=== PATIENT | female | born 1955 | race Caucasian/White ===

== ENCOUNTER 2021-02-21 12:54 | Outpatient (REF) | payer OTHER, SELFPAY ==
--- NOTE | ~2021-02-21 | MM_ITS ---
EXAMINATION: MM DIAGNOSTIC DIGITAL BREAST TOMOSYNTHESIS, BILATERAL CLINICAL INFORMATION: Due for yearly exam. Also follow-up probable benign bilateral calcifications. No known family history breast cancer. The lifetime risk of breast cancer based on the Tyrer-Cuzick Model is 3%. COMPARISON: Mammography: 02/22/2020, 08/27/2019, 02/12/2019, 01/29/2019 (BI-RADS 0), 02/01/2017; targeted right breast ultrasound 08/10/2009 TECHNIQUE: Digital breast tomosynthesis is performed in both the craniocaudal and mediolateral oblique views along with computer-aided detection (CAD). Synthesized 2D images are generated from the tomosynthesis. Additional bilateral magnification CC and additional bilateral magnification ML x2 views are obtained. FINDINGS: The breasts are heterogeneously dense, which may obscure small masses (ACR BI-RADS breast composition Category c). There is fibrocystic parenchymal pattern with rounded areas of stable asymmetry in the central and anterior breasts. Parenchymal pattern is similar to prior studies. There is no developing density or architectural abnormality. The bilateral calcifications for follow-up are similar to prior diagnostic exams and now considered benign. The axilla and skin contours are unremarkable. Results are provided to the patient at time of visit by the technologist. MM/MM tomosynthesis diagnostic BI IMPRESSION: 1. Fibrocystic parenchymal pattern similar to prior studies. 2. Bilateral calcifications for follow-up are stable from prior diagnostic studies and now considered benign. ASSESSMENT: BI-RADS 2: Benign RECOMMENDATION: Routine annual mammography screening. This patient's information was entered into a reminder system with a target due date for their next mammogram.
== END 2021-02-21 12:55 | disposition home or self-care (01) ==
LOC: HO.MAMMO 12:54
PROVIDERS: PCP Internal Medicine; Visit Provider Internal Medicine
DX: R92.1 Mammographic calcification found on diagnostic imaging of breast (principal)
CPT/HCPCS: 77062; 77066

== ENCOUNTER 2021-05-03 08:40 | Outpatient (REF) | payer OTHER, SELFPAY ==
--- NOTE | ~2021-05-03 | MM_ITS ---
EXAMINATION: BONE DENSITOMETRY CLINICAL INDICATION: Asymptomatic menopausal state. COMPARISON: None (current study represents initial baseline exam). TECHNIQUE: Using a [employer] DXA System (software version: 13.1) manufactured by [employer], dual-energy x-ray absorptiometry was performed of the lumbar spine and left hip. The images are of good technical quality. Summary results are attached. FINDINGS: AP SPINE L1-L4: BMD 1.227 g/cm2, Z-score 2.0, T-score 0.4, normal. LEFT FEMUR, NECK: BMD 0.741 g/cm2, Z-score -0.7, T-score -2.1, osteopenia. LEFT FEMUR, TOTAL: BMD 0.832 g/cm2, Z-score -0.2, T-score -1.4, osteopenia. IDENTIFIED RISK FACTORS: Menopause. HISTORY OF FRACTURE: None listed. MEDICATIONS: Vitamin D, Forteo. MM/XR DEXA axial skeleton IMPRESSION: 1. DIAGNOSIS: Osteopenia based on the lowest T-score value of -2.1 in the femoral neck applying World Health Organization criteria. 2. 10-YEAR FRACTURE RISK PREDICTION, FRAX: Major osteoporotic fracture (clinical spine, forearm, hip or shoulder) 10.9%. Hip fracture 1.9%. 3. Treatment Recommendations: NOF guidelines recommend consideration for treatment in postmenopausal women and men age 50 and older presenting with the following: -A hip or vertebral (clinical or morphometric) fracture. -T-score less than or equal to -2.5 at the femoral neck or spine after appropriate evaluation to exclude secondary causes. -Low bone mass at the hip or spine and a 10-year fracture probability by FRAX of greater than or equal to 3% for hip fracture or greater than or equal to 20% for major osteoporotic fracture based on the [place] adapted WHO algorithm. 4. Other Recommendations: All treatment decisions require clinical judgment and consideration of individual patient factors, including patient preferences, comorbidities, previous drug use, risk factors not captured in the FRAX model (e.g. frailty, falls, vitamin D deficiency, increased bone turnover, interval significant decline in bone density) and possible under or overestimation of fracture risk by FRAX. Additional medical evaluation for secondary cause of low bone mineral density may be appropriate. FUTURE SCAN RECOMMENDATION: People with diagnosed cases of osteoporosis or at high risk for fracture should have regular bone mineral density tests. For patients eligible for Medicare, routine testing is allowed once every 2 years. The testing frequency can be increased to one year for patients who have rapidly progressing disease, those who are receiving or discontinuing medical therapy to restore bone mass, or have additional risk factors.
== END 2021-05-03 08:41 | disposition home or self-care (01) ==
LOC: HO.MAMMO 08:40
PROVIDERS: PCP Internal Medicine; Visit Provider Internal Medicine
DX: Z13.820 Encounter for screening for osteoporosis (principal); M85.80 Other specified disorders of bone density and structure, unspecified site; Z78.0 Asymptomatic menopausal state; Z79.899 Other long term (current) drug therapy
CPT/HCPCS: 77080

== ENCOUNTER → 2021-05-22 09:42 | Outpatient (BNVA) | payer OTHER, SELFPAY | PROVIDERS: PCP Internal Medicine; Visit Provider Advanced Practice Midwife ==

== ENCOUNTER 2021-11-06 07:36 | Outpatient (REF) | payer MEDICARE, SELFPAY ==
[2021-11-06 11:59] LABS: Alanine Aminotransferase 14 U/L (0-31); Anion Gap 11 (12-20); Aspartate Amino Transferase 26 U/L (5-31); Blood Urea Nitrogen 17 mg/dL (9-16); Calcium 9.7 mg/dL (8.4-10.2); Carbon Dioxide 27 mmol/L (22-29); Chloride 104 mmol/L (96-108); Cholesterol 275 mg/dL; Estimated Glomerular Filt Rate > 60; Glucose Fasting 108 mg/dL (60-99); HDL Cholesterol 74 mg/dL; LDL Cholesterol Calculated 152 mg/dl; Potassium 4.1 mmol/L (3.3-5.1); Sodium 138 mmol/L (135-145); Triglycerides 248 mg/dL
[2021-11-06 12:34] LABS: Vitamin D 25-OH Total 32.2 ng/mL (>30)
[2021-11-07 05:31] LABS: LDL Cholesterol Direct 154 mg/dL (<100)
== END 2021-11-06 07:37 | disposition home or self-care (01) ==
LOC: HO.HMGCLDS 07:36
PROVIDERS: Visit Provider Internal Medicine
DX: Z00.01 Encounter for general adult medical examination with abnormal findings (principal); E78.1 Pure hyperglyceridemia; I10 Essential (primary) hypertension; Z78.0 Asymptomatic menopausal state
CPT/HCPCS: 36415; 80048; 80061; 82306; 83721; 84450; 84460

== ENCOUNTER 2022-06-08 09:04 | Outpatient (REF) | payer MEDICARE, SELFPAY ==
--- NOTE | ~2022-06-08 | MM_ITS ---
EXAMINATION: MM SCREENING DIGITAL BREAST TOMOSYNTHESIS, BILATERAL CLINICAL INFORMATION: Screening. Asymptomatic. The lifetime risk of breast cancer based on the Tyrer-Cuzick Model is 5%. COMPARISON: Mammography: 02/21/2021, 02/22/2020, 08/27/2019 TECHNIQUE: Digital breast tomosynthesis is performed in both the craniocaudal and mediolateral oblique views along with computer-aided detection (CAD). Synthesized 2D images are generated from the tomosynthesis. FINDINGS: The breasts are heterogeneously dense, which may obscure small masses (ACR BI-RADS breast composition Category c). Parenchymal pattern is similar to prior studies and there is no developing density or interval architectural abnormality or significant mass. Again, there are numerous bilateral calcifications similar in distribution and number to prior exam. There are also some vascular calcifications. The axilla and skin contours are unremarkable. No significant changes. MM/MM tomosynthesis screening BI IMPRESSION: No mammographic evidence of malignancy. ASSESSMENT: BI-RADS 2: Benign RECOMMENDATION: Routine annual mammography screening. This patient's information was entered into a reminder system with a target due date for their next mammogram.
== END 2022-06-08 09:05 | disposition home or self-care (01) ==
LOC: HO.MAMMO 09:04
PROVIDERS: PCP Internal Medicine; Visit Provider Internal Medicine
DX: Z12.31 Encounter for screening mammogram for malignant neoplasm of breast (principal)
CPT/HCPCS: 77063; 77067

== ENCOUNTER 2023-05-03 08:14 | Outpatient (REF) | payer MEDICARE, SELFPAY ==
[2023-05-03 11:44] LABS: Alanine Aminotransferase 11 U/L (0-31); Aspartate Amino Transferase 17 U/L (5-31); Cholesterol 208 mg/dL (<200); Glucose Fasting 94 mg/dL (60-99); HDL Cholesterol 63 mg/dL (>40); LDL Cholesterol Calculated 90 mg/dL (<100); Triglycerides 275 mg/dL (<150)
[2023-05-03 12:28] LABS: Estimated Average Glucose 80 mg/dL; Hemoglobin A1c % 4.4 % (<6.0)
== END 2023-05-03 08:15 | disposition home or self-care (01) ==
LOC: HO.HMGCLDS 08:14
PROVIDERS: PCP Internal Medicine; Visit Provider Internal Medicine
DX: E78.1 Pure hyperglyceridemia (principal); R73.01 Impaired fasting glucose
CPT/HCPCS: 36415; 80061; 82947; 83036; 84450; 84460

== ENCOUNTER 2023-05-09 07:50 | Outpatient (AMB) | payer MEDICARE, SELFPAY ==
[2023-05-09 07:52] VITALS: BP 130/80; PULSE 70; O2SAT 98; BMI 22.8
--- NOTE | 2023-05-09 07:52 | MHC.PC.OV ---
Vital Signs 05/09/23 07:52 Height 5 ft 6 in Weight 141 lb BMI 22.8 BP 130/80 Blood Pressure Location Rt brachial Position Sitting Pulse 70 Pulse Source Pulse Oximeter Pulse Oximetry (%) 98 Oxygen Delivery Method Room Air Intake Visit Reasons: Annual PE Intake Note: Pt is here today for her PE Allergies No Known Allergies Allergy (Mild, Verified 05/09/23 08:28) N/A Medication List - Last Reconciled 05/09/23 by Jaycee Kumar MD cholecalciferol (vitamin D3) 50 mcg PO DAILY fenofibrate micronized 134 mg PO DAILY Tobacco use date assessed: 05/09/23 Fall risk assessment: No Falls in past year Last assessed Fall Risk: 05/09/23 Dental Screening Dental Screen Date: 05/09/23 Did you have a dental visit in the last 12 months?: Yes Did you have a dental problem in the last 6 months where you did not have access to dental care?: Yes Was dental information given to patient?: Patient has dentist HPI Annual PE HPI Details 67-year-old lady osteopenia and multiple sites, and hypertriglyceridemia, here today for her physical exam. She is due for her screening mammogram and her bone density scan, last 1 done in 2020 for her bone density which showed presence of osteopenia in left femoral neck and left femur. No history of fractures. She is up-to-date with her screening colonoscopy done [address] Roblero with negative results, but due to positive family history in her sister, she is due again for repeat screening in 2024. She has had her COVID vaccines but has not yet had the booster, up-to-date with her flu shot, Tdap and pneumococcal vaccine, has not yet had her Shingrix vaccination. Overall she has been feeling well with no complaints at present time. [facility] Medical History AVM (arteriovenous malformation) brain Cervical cancer screening Hypertriglyceridemia Impaired fasting glucose Osteopenia of multiple sites Postmenopause Surgical History H/O breast biopsy Hx of tonsillectomy Family History Sister Colon cancer Emphysema lung Mother COPD (chronic obstructive pulmonary disease) Daughter Bronchial asthma Social History Housing: House Alcohol intake: current Alcohol intake frequency: a few times a week Patient Tobacco Use Status: Never used Tobacco Tobacco use type: Cigarette e-Cigarette/Vaping Use: Never Used Second Hand Smoke Exposure: No service: No Current occupational status: retired Cognitive needs: No Hearing needs: No Vision needs: No Female Reproductive History Menstrual Date of Mammogram: 06/08/22 Date of last Bone Density Screenin05/03/21 Questionnaire PHQ-9 Over the last 2 weeks, how often have you been bothered by any of the following problems? 1. Little interest or pleasure in doing things: not at all 2. Feeling down, depressed, or hopeless: not at all 3. Trouble falling or staying asleep, or sleeping too much: several days 4. Feeling tired or having little energy: not at all 5. Poor appetite or overeating: not at all 6. Feeling bad about yourself - or that you are a failure or have let yourself or your family down: not at all 7. Trouble concentrating on things, such as reading the newspaper or watching television: not at all 8. Moving or speaking so slowly that other people could have noticed. Or the opposite - being so fidgety or restless that you have been moving around a lot more than usual: not at all 9. Thoughts that you would be better off or of hurting yourself in some way: not at all Total score: 1 Depression Screening Interpretation: Negative 52416 - PHQ-9 Billing: Yes Source: Developed by Drs. Constantin Arcos, Lata Florentino, Cesar Gutiérrez and colleagues, with an educational doug from [employer]. Thrive Questionnaire Date Thrive assessed: 05/09/23 I am a: Patient What is your living situation today?: I have a steady place to live Within the past 12 months, did the food you bought not last and you didn't have the money to get more?: Never true Within the past 12 months, did you worry whether your food would run out before you got money to buy more?: Never true Do you have trouble paying for medicines?: No Do you have trouble getting transportation to medical appointments?: No Do you have trouble paying your heating and electricity bill?: No Do you have trouble taking care of your child, family member or friend?: No Do you have trouble with day-to-day activities such as bathing, preparing meals, shopping, managing finances, etc.?: No Are you currently unemployed and looking for a job?: No Are you interested in more education?: No AUDIT C Alcohol Use Questionnaire (AUDIT-C) 1. How often do you have a drink containing alcohol?: 4 or more times a week 2. How many drinks containing alcohol do you have on a typical day when you are drinking?: 1 or 2 3. How often do you have six or more drinks on one occasion?: Never Total Score: 4 ALEXEI-7 AMB Questionnaire ALEXEI-7 Date ALEXEI - 7 assessed: 05/09/23 Feeling nervous, anxious, or on edge: 0 = Not at all Not being able to stop or control worryin = Not at all Worrying too much about different things: 0 = Not at all Trouble relaxin = Not at all Being so restless that it is hard to sit still: 0 = Not at all Becoming easily annoyed or irritable: 0 = Not at all Feeling afraid as if something awful might happen: 0 = Not at all Total ALEXEI-7 score (0-4 normal; 5-9 mild; 10-14 moderate; 15-21 severe): 0 Source: Developed by Drs. Constantin Arcos, Lata Florentino, Cesar Gutiérrez and colleagues, with an educational doug from [employer]. ALEXEI-7 Assessment Billing ALEXEI-7 Assessment Tool: ALEXEI-7 Assessment 89318 Review of Systems Const Denies body aches, Denies fatigue, Denies fever(s), Denies headache(s) and Denies weakness Eyes Details: Overdue for eye screen, history of LASIK surgery Denies change in vision, Denies eye discharge and Denies itchy eyes ENT Denies dizziness, Denies headache(s), Denies nasal congestion, Denies nasal discharge and Denies sore throat Card Denies chest pain, Denies lightheadedness, Denies palpitations and Denies dyspnea Resp Denies chest congestion, Denies cough, Denies dyspnea and Denies wheezing GI Denies abdominal pain, Denies change in bowel habits and Denies heartburn Denies urinary frequency, Denies dysuria and Denies urinary urgency Musc Reports no additional complaints Skin/Breast Denies lesions and Denies rash Neuro Denies dizziness, Denies headache(s) and Denies weakness Psych Reports as per HPI Endo Denies fatigue, Denies polydipsia, Denies polyuria and Denies palpitations Adriano/Lymph Denies easy bruising Aller/Immun Denies itchy eyes, Denies seasonal rhinorrhea and Denies wheezing Physical exam (Primary Care) Vital Signs: Last Vital Signs Pulse 70 05/09/23 07:52 BP 130/80 05/09/23 07:52 Pulse Ox 98 05/09/23 07:52 Oxygen Delivery Method Room Air 05/09/23 07:52 BMI result Body Mass Index 22.8 Tobacco/Smoking Status: Tobacco use Status Tobacco use date assessed 05/09/23 05/09/23 08:04 Patient Tobacco Use Status Never used Tobacco 05/09/23 07:55 Tobacco use type Cigarette 05/09/23 07:55 e-Cigarette/Vaping Use Never Used 05/09/23 07:55 PHQ-9: PHQ-9 Score PHQ-9: Total score 1 05/09/23 08:04 Depression Screening Interpretation: Negative Thrive Assessment: Date of Thrive Assessment Date Thrive assessed 05/09/23 05/09/23 08:04 Advance Care Planning discussion: On file, no changes Date of discussion: 05/09/23 Forms completed: MOLST Time spent: 1-15 minutes, on File Actual minutes spent: 15 Const General: cooperative, comfortable and no acute distress Nutritional Appearance: average body habitus Orientation/consciousness: patient oriented x3 Limitations: no limitations HENMT Head: Yes normocephalic General nose exam: Normal external nose present and Normal nasal mucous membranes and turbinates present Face and sinus: Yes face symmetric Mouth: moist mucous membranes Eyes General: appearance normal, both eyes and all related structures Neck Neck: Yes full ROM, Yes no lymphadenopathy and Yes supple Thyroid: Thyroid normal Chest Breast/axilla palpation: normal palpation of the breasts Resp Auscultation: clear to auscultation bilaterally Cardio Other: S1-S2 present regular rate and rhythm Bruits: no abdominal aortic bruits GI Inspection: Yes normal to inspection Palpation (GI): No Abdominal aortic bruit present, Soft to palpation, nontender, no guarding and no masses Back/Spine/Pelvis Cervical Spine: normal cervical lordosis Thoracic/Lumbar Spine: thoraco-lumbar ROM normal Skin General skin exam: no rashes or lesions noted Neuro General: patient oriented x3, gait normal, moves all extremities, Normal light touch and pain sensation and no focal motor deficits Extrem General: Yes full ROM, Yes no joint enlargement, Yes no pedal edema, Yes no calf tenderness and Yes normal gait Psych Appearance: grossly normal Mental Status: mental status grossly normal Speech and movement: Normal speech and movement present Affect: normal affect Attitude: cooperative Thought process: Normal thought process present Results Reviewed Results Reviewed: ENTERED: 05/03/[address]: ORDERED: Glu Fasting, AST, ALT, Lipid Panel Test Result Flag Reference Site FBS 94 60-99 mg/dL AST (GOT) 17 5-31 U/L ALT (GPT) 11 0-31 U/L Triglyceride 275 H <150 mg/dL Desirable Triglyceride: less than 150 mg/dL Borderline High Triglyceride 150-199 mg/dL High Triglyceride: 200-499 mg/dL Very High Triglyceride: greater than or equal to 5OO mg/dL Cholesterol 208 H <200 mg/dL Desirable Cholesterol: less than 200 mg/dL Borderline High Cholesterol: 200-239 mg/dL High Cholesterol: greater than 239 mg/dL LDL Calculated 90 <100 mg/dL Desirable LDL: less than 100 mg/dL Near Optimal/Above Optimal LDL: 110-129 mg/dL Borderline High LDL: 130-159 mg/dL High LDL: 160-189 mg/dL Very High LDL: greater than or equal to 190 mg/dL HDL 63 >40 mg/dL Desirable HDL: greater than 40 mg/dL Note: This HDL assay may give artificially low results in patients with liver disease. Assessment and Plan Assessment & Plan (1) Annual visit for general adult medical examination with abnormal findings: Code(s): Z00.01 - Encounter for general adult medical examination with abnormal findings Plan: Discuss recent fasting labs with patient which showed fasting glucose and lipids . Recommended dental visit every 6 months and regular eye exams, at least every 2 years. Take adequate calcium in diet and vitamin-D 3 at 2000 IU per cap once a day, in addition to weight-bearing exercises to help maintain good muscle tone and weight control. Instructed to do self-breast exam, and continue yearly mammogram, and bone density scan of 2 years at least, will schedule reminded to get her COVID booster and yearly flu shot, advised to get her shingles vaccination, up-to-date with pneumonia vaccines and Tdap. Due for her repeat screening colonoscopy in 2024 (2) Hypertriglyceridemia: Code(s): E78.1 - Pure hyperglyceridemia Plan: Reviewed recent fasting lipid profile with patient with normal LDL cholesterol but elevated triglycerides . Continue with fiber , in addition to adherence to low-cholesterol diet and regular exercise, at least 30 minutes 3 to 4 times a week. Advised patient to make healthy food choices, eat more fruits, vegetables, whole grains, wild caught fish and low-fat dairy. Limit amount of meat and fried or fatty food products, as well as processed foods and fast foods. Follow-up scheduled with repeat fasting lipid panel in 6 months. (3) Osteopenia of multiple sites: Code(s): M85.89 - Other specified disorders of bone density and structure, multiple sites Plan: <del>Bone</del> <del>density</del> <del>scan</del> <del>ordered.</del> <del>Continue</del> <del>vitamin-D</del> <del>3</del> <del>2000</del> <del>units</del> <del>daily</del> <del>and</del> <del>do</del> <del>regular</del> <del>weight-bearing</del> <del>exercise,</del> <del>take</del> <del>adequate</del> <del>calcium</del> <del>from</del> <del>dietary</del> <del>sources</del> (4) Impaired fasting glucose: Code(s): R73.01 - Impaired fasting glucose Plan: Your fasting blood sugars were elevated above 100 mg/dL in the past, latest fasting glucose levels within normal limits with a hemoglobin A1c at 4.4%. Impaired glucose metabolism O2 at risk for developing diabetes mellitus type 2, as well as heart attack and stroke later on. Lifestyle changes at just weight loss, healthy eating habits, and regular exercise are important, and can prevent the progression to diabetes Orders: Orders Alanine Aminotransferase 6 Months E78.1 - Pure hyperglyceridemia, M85.89 - Other specified disorders of bone density and structure, multiple sites, Z00.01 - Encounter for general adult medical examination with abnormal findings, Z78.0 - Asymptomatic menopausal state Aspartate Amino Transferase 6 Months E78.1 - Pure hyperglyceridemia, M85.89 - Other specified disorders of bone density and structure, multiple sites, Z00.01 - Encounter for general adult medical examination with abnormal findings, Z78.0 - Asymptomatic menopausal state Lipid Panel 6 Months E78.1 - Pure hyperglyceridemia, M85.89 - Other specified disorders of bone density and structure, multiple sites, Z00.01 - Encounter for general adult medical examination with abnormal findings, Z78.0 - Asymptomatic menopausal state Vitamin D 25-OH Total 6 Months E78.1 - Pure hyperglyceridemia, M85.89 - Other specified disorders of bone density and structure, multiple sites, Z00.01 - Encounter for general adult medical examination with abnormal findings, Z78.0 - Asymptomatic menopausal state XR DEXA axial skeleton Today M85.89 - Other specified disorders of bone density and structure, multiple sites, Z12.31 - Encounter for screening mammogram for malignant neoplasm of breast, Z13.820 - Encounter for screening for osteoporosis, Z78.0 - Asymptomatic menopausal state MM screening mammo BI Today M85.89 - Other specified disorders of bone density and structure, multiple sites, Z12.31 - Encounter for screening mammogram for malignant neoplasm of breast, Z13.820 - Encounter for screening for osteoporosis, Z78.0 - Asymptomatic menopausal state Medications: Refilled fenofibrate micronized 134 mg PO DAILY 90 caps 3RF Coding Level of Care Code Est Pt Prev Care >65y(52991) Diagnoses Annual visit for general adult medical examination with abnormal findings Z00.01 Hypertriglyceridemia E78.1 Osteopenia of multiple sites M85.89 Impaired fasting glucose R73.01 Additional Codes ALEXEI-7 Assessment Billing - ALEXEI-7 Assessment Tool: ALEXEI-7 Assessment 26861 ([id number]) Vital Signs *Quality* - Advance Care Planning discussion: On file, no changes ([id number]) Vital Signs *Quality* - Time spent: 1-15 minutes, on File ([id number])
== END 2023-05-09 09:59 | disposition home or self-care (01) ==
PROVIDERS: Visit Provider Internal Medicine
DX: Z00.00 Encounter for general adult medical examination without abnormal findings (principal); E78.1 Pure hyperglyceridemia; M85.89 Other specified disorders of bone density and structure, multiple sites; R73.01 Impaired fasting glucose
CPT/HCPCS: 1123F; 99397

== ENCOUNTER 2023-07-09 09:19 | Outpatient (REF) | payer MEDICARE, SELFPAY ==
--- NOTE | ~2023-07-09 | MM_ITS ---
EXAMINATION: BONE DENSITOMETRY CLINICAL INDICATION: Encounter for screening for osteoporosis. Osteopenia of multiple sites. COMPARISON: Baseline BD dated 05/03/2021. TECHNIQUE: Using a [employer] DXA System (software version: 13.1) manufactured by [employer], dual-energy x-ray absorptiometry was performed of the lumbar spine and left hip. The images are of good technical quality. Summary results are attached. FINDINGS: AP SPINE L1-L2 (excluding L3 and L4): The data of L1-L4 has been changed to exclude the L3 and L4 vertebral bodies, because degenerative sclerosis at these levels may cause overestimation of lumbar spine density. Current: BMD 1.134 g/cm2, Z-score 1.5, T-score -0.3, normal, 4.0% decrease from baseline (<5% change is not significant). Baseline: BMD 1.181 g/cm2. LEFT FEMUR, NECK: Current: BMD 0.598 g/cm2, Z-score -1.5, T-score -3.2, osteoporosis. Baseline: BMD 0.741 g/cm2. LEFT FEMUR, TOTAL: Current: BMD 0.701 g/cm2, Z-score -1.0, T-score -2.4, osteopenia, 15.7% decrease from baseline (<5% change is not significant). Baseline: BMD 0.832 g/cm2. IDENTIFIED RISK FACTORS: Menopause. HISTORY OF FRACTURE: None listed. MEDICATIONS: Vitamin D. MM/XR DEXA axial skeleton IMPRESSION: 1. DIAGNOSIS: Osteoporosis based on the lowest T-score value of -3.2 in the femoral neck applying World Health Organization criteria. 2. 10-YEAR FRACTURE RISK PREDICTION, FRAX: According to the guidelines, FRAX calculation should only be performed on patients in the osteopenia bone density category.?Therefore, FRAX was not performed on this patient.? 3. Treatment Recommendations: NOF guidelines recommend consideration for treatment in postmenopausal women and men age 50 and older presenting with the following: -A hip or vertebral (clinical or morphometric) fracture. -T-score less than or equal to -2.5 at the femoral neck or spine after appropriate evaluation to exclude secondary causes. -Low bone mass at the hip or spine and a 10-year fracture probability by FRAX of greater than or equal to 3% for hip fracture or greater than or equal to 20% for major osteoporotic fracture based on the [place] adapted WHO algorithm. 4. Other Recommendations: All treatment decisions require clinical judgment and consideration of individual patient factors, including patient preferences, comorbidities, previous drug use, risk factors not captured in the FRAX model (e.g. frailty, falls, vitamin D deficiency, increased bone turnover, interval significant decline in bone density) and possible under or overestimation of fracture risk by FRAX. Additional medical evaluation for secondary cause of low bone mineral density may be appropriate. FUTURE SCAN RECOMMENDATION: People with diagnosed cases of osteoporosis or at high risk for fracture should have regular bone mineral density tests. For patients eligible for Medicare, routine testing is allowed once every 2 years. The testing frequency can be increased to one year for patients who have rapidly progressing disease, those who are receiving or discontinuing medical therapy to restore bone mass, or have additional risk factors.
== END 2023-07-09 09:20 | disposition home or self-care (01) ==
LOC: HO.MAMMO 09:19
PROVIDERS: PCP Internal Medicine; Visit Provider Internal Medicine
DX: Z12.31 Encounter for screening mammogram for malignant neoplasm of breast (principal); Z13.820 Encounter for screening for osteoporosis; Z78.0 Asymptomatic menopausal state; M85.89 Other specified disorders of bone density and structure, multiple sites
CPT/HCPCS: 77063; 77067; 77080

== ENCOUNTER → 2023-07-09 09:45 | Outpatient (BNV) | payer MEDICARE, SELFPAY | PROVIDERS: PCP Internal Medicine; Visit Provider Radiology Diagnostic Radiology | DX: Z12.31 Encounter for screening mammogram for malignant neoplasm of breast (principal) | CPT/HCPCS: 77063; 77067 ==

== ENCOUNTER 2024-05-25 07:01 | Outpatient (REF) | payer MEDICARE, SELFPAY ==
[2024-05-25 11:12] LABS: Alanine Aminotransferase 10 U/L (0-31); Aspartate Amino Transferase 15 U/L (5-31); Cholesterol 200 mg/dL (<200); HDL Cholesterol 77 mg/dL (>40); LDL Cholesterol Calculated 113 mg/dL (<100); Triglycerides 54 mg/dL (<150); Vitamin D 25-OH Total 46.4 ng/mL (>30)
== END 2024-05-25 07:02 | disposition home or self-care (01) ==
LOC: HO.HMGCLDS 07:01
PROVIDERS: PCP Internal Medicine; Visit Provider Internal Medicine
DX: M85.89 Other specified disorders of bone density and structure, multiple sites (principal); E78.1 Pure hyperglyceridemia; Z78.0 Asymptomatic menopausal state
CPT/HCPCS: 36415; 80061; 82306; 84450; 84460

== ENCOUNTER 2024-05-26 10:00 | Outpatient (AMB) | payer MEDICARE, SELFPAY ==
--- NOTE | 2024-05-26 10:16 | A.OFFPC_ITS ---
Vital Signs 05/26/24 10:30 Height 5 ft 6 in Weight 134 lb BMI 21.6 BP 125/60 Position Sitting Pulse 53 Pulse Source Pulse Oximeter Pulse Oximetry (%) 98 Oxygen Delivery Method Room Air Intake Visit Reasons: Annual Physical Intake Note: Pt is here today for her PE: Last mammogram 07/09/23, bone density scan 07/09/23, colonoscopy 09/22/19 Allergies No Known Allergies Allergy (Mild, Verified 05/26/24 10:55) N/A Medication List - Last Reconciled 05/26/24 by Jaycee Kumar MD cholecalciferol (vitamin D3) 50 mcg PO DAILY fenofibrate micronized 134 mg PO DAILY Tobacco use date assessed: 05/26/24 Fall risk assessment: No Falls in past year Last assessed Fall Risk: 05/26/24 Dental Screening Dental Screen Date: 05/26/24 Did you have a dental visit in the last 12 months?: No Did you have a dental problem in the last 6 months where you did not have access to dental care?: No Was dental information given to patient?: Patient has dentist HPI Annual Physical HPI Details 68 year-old lady osteopenia and multiple sites, and hypertriglyceridemia, here today for her physical exam. Last mammogram 07/09/23, bone density scan 07/09/23, colonoscopy 09/22/19. Has been feeling well with no other complaints at present time. [facility] Medical History (Updated 05/26/24 @ 11:04 by Jaycee Kumar MD) Osteoporosis Osteopenia of multiple sites Impaired fasting glucose AVM (arteriovenous malformation) brain Cervical cancer screening Hypertriglyceridemia Postmenopause Surgical History Hx of tonsillectomy H/O breast biopsy Family History Sister Colon cancer Emphysema lung Mother COPD (chronic obstructive pulmonary disease) Daughter Bronchial asthma Social History Housing: House Alcohol intake: current Alcohol intake frequency: a few times a week Patient Tobacco Use Status: Never used Tobacco Tobacco use type: Cigarette e-Cigarette/Vaping Use: Never Used Second Hand Smoke Exposure: No service: No Current occupational status: retired Cognitive needs: No Hearing needs: No Vision needs: No Questionnaire PHQ-9 Over the last 2 weeks, how often have you been bothered by any of the following problems? 1. Little interest or pleasure in doing things: not at all 2. Feeling down, depressed, or hopeless: not at all 3. Trouble falling or staying asleep, or sleeping too much: not at all 4. Feeling tired or having little energy: not at all 5. Poor appetite or overeating: not at all 6. Feeling bad about yourself - or that you are a failure or have let yourself or your family down: not at all 7. Trouble concentrating on things, such as reading the newspaper or watching television: not at all 8. Moving or speaking so slowly that other people could have noticed. Or the opposite - being so fidgety or restless that you have been moving around a lot more than usual: not at all 9. Thoughts that you would be better off or of hurting yourself in some way: not at all Total score: 0 Depression Screening Interpretation: Negative Depression Screening Done: Yes 67053 - PHQ-9 Billing: Yes Source: Developed by Drs. Constantin Arcos, Lata Florentino, Cesar Gutiérrez and colleagues, with an educational doug from [employer]. Thrive Questionnaire Date Thrive assessed: 05/26/24 I am a: Patient What is your living situation today?: I have a steady place to live Within the past 12 months, did the food you bought not last and you didn't have the money to get more?: Never true Within the past 12 months, did you worry whether your food would run out before you got money to buy more?: Never true Do you have trouble paying for medicines?: No Do you have trouble getting transportation to medical appointments?: No Do you have trouble paying your heating and electricity bill?: No Do you have trouble taking care of your child, family member or friend?: No Do you have trouble with day-to-day activities such as bathing, preparing meals, shopping, managing finances, etc.?: No Are you interested in more education?: No Please select the resources that you would like help with: None Currently or been in a relationship where the following occur: No concerns reported THRIVE Score: 0 AUDIT C Alcohol Use Questionnaire (AUDIT-C) 1. How often do you have a drink containing alcohol?: 2-4 times a month 2. How many drinks containing alcohol do you have on a typical day when you are drinking?: 1 or 2 3. How often do you have six or more drinks on one occasion?: Never Total Score: 2 ALEXEI-7 AMB Questionnaire ALEXEI-7 Date ALEXEI - 7 assessed: 05/26/24 Feeling nervous, anxious, or on edge: 0 = Not at all Not being able to stop or control worryin = Not at all Worrying too much about different things: 0 = Not at all Trouble relaxin = Not at all Being so restless that it is hard to sit still: 0 = Not at all Becoming easily annoyed or irritable: 0 = Not at all Feeling afraid as if something awful might happen: 0 = Not at all Total ALEXEI-7 score (0-4 normal; 5-9 mild; 10-14 moderate; 15-21 severe): 0 Source: Developed by Drs. Constantin Arcos, Lata Florentino, Cesar Gutiérrez and colleagues, with an educational doug from [employer]. ALEXEI-7 Assessment Billing ALEXEI-7 Assessment Tool: ALEXEI-7 Assessment 58356 Review of Systems Const Denies body aches, Denies fatigue, Denies fever(s), Denies headache(s) and Denies weakness Eyes Details: Overdue for eye screen, history of LASIK surgery Denies change in vision, Denies eye discharge and Denies itchy eyes ENT Denies dizziness, Denies headache(s), Denies nasal congestion, Denies nasal discharge and Denies sore throat Card Denies chest pain, Denies lightheadedness, Denies palpitations and Denies dyspnea Resp Denies chest congestion, Denies cough, Denies dyspnea and Denies wheezing GI Denies abdominal pain, Denies change in bowel habits and Denies heartburn Denies urinary frequency, Denies dysuria and Denies urinary urgency Musc Reports no additional complaints Skin/Breast Denies lesions and Denies rash Neuro Denies dizziness, Denies headache(s) and Denies weakness Psych Reports as per HPI Endo Denies fatigue, Denies polydipsia, Denies polyuria and Denies palpitations Adriano/Lymph Denies easy bruising Aller/Immun Denies itchy eyes, Denies seasonal rhinorrhea and Denies wheezing Physical exam (Primary Care) Vital Signs: Last Vital Signs Pulse 53 05/26/24 10:30 BP 125/60 05/26/24 10:30 Pulse Ox 98 05/26/24 10:30 Oxygen Delivery Method Room Air 05/26/24 10:30 BMI result Body Mass Index 21.6 Tobacco/Smoking Status: Tobacco use Status Tobacco use date assessed 05/26/24 05/26/24 10:18 Patient Tobacco Use Status Never used Tobacco 05/26/24 10:18 Tobacco use type Cigarette 05/26/24 10:18 e-Cigarette/Vaping Use Never Used 05/26/24 10:18 PHQ-9: PHQ-9 Score PHQ-9: Total score 0 05/26/24 11:11 Depression Screening Interpretation: Negative Thrive Assessment: Date of Thrive Assessment Date Thrive assessed 05/26/24 05/26/24 10:18 Currently or been in a relationship where the following occur: No concerns reported Advance Care Planning discussion: Completed/Scanned Date of discussion: 05/26/24 Who was present: patient Forms completed: Health Care Proxy Time spent: 16-45 minutes Actual minutes spent: 16 Const General: cooperative, comfortable and no acute distress Nutritional Appearance: average body habitus Orientation/consciousness: patient oriented x3 Limitations: no limitations HENMT Head: Yes normocephalic General nose exam: Normal external nose present and Normal nasal mucous membranes and turbinates present Face and sinus: Yes face symmetric Mouth: moist mucous membranes Eyes General: appearance normal, both eyes and all related structures Neck Neck: Yes full ROM, Yes no lymphadenopathy and Yes supple Thyroid: Thyroid normal Chest Breast/axilla palpation: normal palpation of the breasts Resp Auscultation: clear to auscultation bilaterally Cardio Other: S1-S2 present regular rate and rhythm Bruits: no abdominal aortic bruits GI Inspection: Yes normal to inspection Palpation (GI): No Abdominal aortic bruit present, Soft to palpation, nontender, no guarding and no masses Back/Spine/Pelvis Cervical Spine: normal cervical lordosis Thoracic/Lumbar Spine: thoraco-lumbar ROM normal Skin General skin exam: no rashes or lesions noted Neuro General: patient oriented x3, gait normal, moves all extremities, Normal light touch and pain sensation and no focal motor deficits Extrem General: Yes full ROM, Yes no joint enlargement, Yes no pedal edema, Yes no calf tenderness and Yes normal gait Psych Appearance: grossly normal Mental Status: mental status grossly normal Speech and movement: Normal speech and movement present Affect: normal affect Attitude: cooperative Thought process: Normal thought process present Results Reviewed Results Reviewed: Name: Shaniqua Benitez Age/Sex: 68/F : 1955 Unit#: [id number] Attend Dr: Jaycee Kumar MD Re05/25/24 Status: DEP [facility] Disch: SPEC : [id number] ERICKSON: 05/25/24 STATUS: COMP REQ : [id number] RECD: 05/25/[address]: Jaycee Kumar MD COMP: 05/25/24 ENTERED: 05/25/[address]: ORDERED: AST, ALT, Lipid Panel, Vitamin D 25-OH Test Result Flag Reference AST (GOT) 15 5-31 U/L ALT (GPT) 10 0-31 U/L Triglyceride 54 <150 mg/dL Desirable Triglyceride: less than 150 mg/dL Borderline High Triglyceride 150-199 mg/dL High Triglyceride: 200-499 mg/dL Very High Triglyceride: greater than or equal to 5OO mg/dL Cholesterol 200 H <200 mg/dL Desirable Cholesterol: less than 200 mg/dL Borderline High Cholesterol: 200-239 mg/dL High Cholesterol: greater than 239 mg/dL LDL Calculated 113 H <100 mg/dL Desirable LDL: less than 100 mg/dL Near Optimal/Above Optimal LDL: 110-129 mg/dL Borderline High LDL: 130-159 mg/dL High LDL: 160-189 mg/dL Very High LDL: greater than or equal to 190 mg/dL HDL 77 >40 mg/dL Desirable HDL: greater than 40 mg/dL Note: This HDL assay may give artificially low results in patients with liver disease. Vit D 25-OH Tot 46.4 >30 ng/mL Health Based Reference Values* < 20 ng/mL Deficient 20-30 ng/mL Insufficient > 30 ng/mL Sufficient *Ilan POLANCO. N Engl J Med. 2007;357:266-280 Care must be taken in interpreting Vitamin D results from different laboratories and methodologies. Published data demonstrated that results from patients undergoing hemodialysis may show a negative bias when tested with various automated 25-OH vitamin D assays when compared to LC-MS/MS. When testing samples from patients whose predominant form of Vitamin D is Vitamin D2, such as patients receiving Vitamin D2 supplementation, results that are subtherapeutic should be confirmed with another method such as LC-MS/MS. MM/XR DEXA axial skeleton done 07/2023 IMPRESSION: 1. DIAGNOSIS: Osteoporosis based on the lowest T-score value of -3.2 in the femoral neck applying World Health Organization criteria. Assessment and Plan Assessment & Plan (1) Osteoporosis: Code(s): M81.0 - Age-related osteoporosis without current pathological fracture Plan: Discuss recent bone density scan results with the patient , and she was started on alendronate 70 mg once a week, discussed possible side effects of medication which may include increased heartburn, increased risk for esophageal ulcers, bone pain. Reinforced importance of getting regular exercise especially with weights, take adequate calcium from dietary sources and continue taking cholecalciferol 50 mcg taken once a day. Repeat another bone density scan next year (2) Annual visit for general adult medical examination with abnormal findings: Code(s): Z00.01 - Encounter for general adult medical examination with abnormal findings Plan: Reviewed recent fasting lab results with patient Recommended dental visit every 6 months and regular eye exams, at least every 2 years. Take adequate calcium in diet and vitamin-D 3 at 2000 IU per cap once a day, in addition to weight- bearing exercises to help maintain good muscle tone and weight control. Instructed to do self-breast exam, and continue with yearly mammogram. Up-to-date with her screening colonoscopy.. Reminded to get her yearly flu vaccine and COVID booster (3) Hypertriglyceridemia: Code(s): E78.1 - Pure hyperglyceridemia Plan: Latest fasting labs showed normal triglycerides with mildly elevated LDL cholesterol. Continued on fenofibrate micronized 134 mg daily (4) Advanced directives, counseling/discussion: Code(s): Z71.89 - Other specified counseling Plan: Initiated the conversation about Advanced Directives. Advanced Directives help patients prepare for current and future decisions about their medical treatment and place of care. Discussed with patient that it is a process where a patients current condition and prognosis are reviewed, their wishes for information regarding their illness are elicited, and likely medical dilemmas are presented and options discussed. Healthcare proxy form completed today. The form can be amended as needed, reviewed yearly and make changes as needed Orders: Orders MM tomosynthesis screening BI 05/26/24 Z00.01 - Encounter for general adult medical examination with abnormal findings, Z12.31 - Encounter for screening mammogram for malignant neoplasm of breast Alanine Aminotransferase 11/06/24 E78.1 - Pure hyperglyceridemia, M81.0 - Age- related osteoporosis without current pathological fracture, Z78.0 - Asymptomatic menopausal state Aspartate Amino Transferase 11/06/24 E78.1 - Pure hyperglyceridemia, M81.0 - Age-related osteoporosis without current pathological fracture, Z78.0 - Asymptomatic menopausal state Lipid Panel 11/06/24 E78.1 - Pure hyperglyceridemia, M81.0 - Age-related osteoporosis without current pathological fracture, Z78.0 - Asymptomatic menopausal state Vitamin D 25-OH Total 11/06/24 E78.1 - Pure hyperglyceridemia, M81.0 - Age- related osteoporosis without current pathological fracture, Z78.0 - Asymptomatic menopausal state Medications: New alendronate 70 mg PO QWEEK 3 months 13 tabs 4RF M81.0 - Age-related osteoporosis without current pathological fracture Coding Level of Care Code Est Pt Prev Care >65y(06211) Diagnoses Osteoporosis M81.0 Annual visit for general adult medical examination with abnormal findings Z00.01 Hypertriglyceridemia E78.1 Advanced directives, counseling/discussion Z71.89 Additional Codes ALEXEI-7 Assessment Billing - ALEXEI-7 Assessment Tool: ALEXEI-7 Assessment 89290 ([id number]) Vital Signs *Quality* - Advance Care Planning discussion: Completed/Scanned ([id number]) Vital Signs *Quality* - Time spent: 16-45 minutes ([id number])
[2024-05-26 10:30] VITALS: BP 125/60; PULSE 53; O2SAT 98; BMI 21.6
== END 2024-05-26 11:18 | disposition home or self-care (01) ==
PROVIDERS: PCP Internal Medicine; Visit Provider Internal Medicine
DX: M81.0 Age-related osteoporosis without current pathological fracture (principal); Z00.01 Encounter for general adult medical examination with abnormal findings; E78.1 Pure hyperglyceridemia; Z71.89 Other specified counseling; Z00.00 Encounter for general adult medical examination without abnormal findings

== ENCOUNTER → 2024-05-26 10:00 | Outpatient (BNVA) | payer MEDICARE, SELFPAY | PROVIDERS: PCP Internal Medicine; Visit Provider Internal Medicine | DX: Z00.01 Encounter for general adult medical examination with abnormal findings (principal); M81.0 Age-related osteoporosis without current pathological fracture; E78.1 Pure hyperglyceridemia; Z71.89 Other specified counseling | CPT/HCPCS: 96127; 99497 ==

== ENCOUNTER 2024-07-10 09:46 | Outpatient (REF) | payer MEDICARE, SELFPAY ==
--- NOTE | ~2024-07-10 | MM_ITS ---
EXAMINATION: MM SCREENING DIGITAL BREAST TOMOSYNTHESIS, BILATERAL CLINICAL INFORMATION: Screening. Asymptomatic. COMPARISON: Mammography: Comparison is made with available priors TECHNIQUE: Digital breast mammography with tomosynthesis is performed in both the craniocaudal and mediolateral oblique views along with computer-aided detection (CAD). FINDINGS: The breasts are heterogeneously dense, which may obscure small masses (ACR BI-RADS breast composition Category c). There are no significant masses, abnormal calcifications, or other abnormalities. MM/MM tomosynthesis screening BI IMPRESSION: No mammographic evidence of malignancy. ASSESSMENT: BI-RADS BI-RADS 1 - Negative RECOMMENDATION: Routine annual mammography screening. 1 year F/U This examination should not preclude the clinical evaluation of a suspicious palpable abnormality. This patient's information was entered into a reminder system with a target due date for their next mammogram. Electronically signed by: Helen Cheung DO 07/20/2024 09:23 AM EMMANUELLE
== END 2024-07-10 09:47 | disposition home or self-care (01) ==
LOC: HO.MAMMO 09:46
PROVIDERS: PCP Internal Medicine; Visit Provider Internal Medicine
DX: Z12.31 Encounter for screening mammogram for malignant neoplasm of breast (principal)
CPT/HCPCS: 77063; 77067

== ENCOUNTER → 2024-07-10 10:00 | Outpatient (BNV) | payer MEDICARE, SELFPAY | PROVIDERS: PCP Internal Medicine; Visit Provider Internal Medicine | DX: Z12.31 Encounter for screening mammogram for malignant neoplasm of breast (principal) | CPT/HCPCS: 77063; 77067 ==

== ENCOUNTER 2024-11-12 07:36 | Outpatient (REF) | payer MEDICARE, SELFPAY ==
[2024-11-12 10:57] LABS: Alanine Aminotransferase 24 U/L (0-31); Aspartate Amino Transferase 25 U/L (5-31); Cholesterol 203 mg/dL (<200); HDL Cholesterol 86 mg/dL (>40); LDL Cholesterol Calculated 104 mg/dL (<100); Triglycerides 66 mg/dL (<150); Vitamin D 25-OH Total 54.2 ng/mL (>30)
== END 2024-11-12 07:37 | disposition home or self-care (01) ==
LOC: HO.HMGCLDS 07:36
PROVIDERS: PCP Internal Medicine; Visit Provider Internal Medicine
DX: M81.0 Age-related osteoporosis without current pathological fracture (principal); E78.1 Pure hyperglyceridemia; Z78.0 Asymptomatic menopausal state
CPT/HCPCS: 36415; 80061; 82306; 84450; 84460

== ENCOUNTER 2024-11-17 08:08 | Outpatient (AMB) | payer MEDICARE, SELFPAY ==
[2024-11-17 08:19] VITALS: BP 120/54; PULSE 77; RESP 16; TEMP 36.6; O2SAT 97; BMI 20.7
--- NOTE | 2024-11-17 08:19 | MHC.PC.OV ---
Vital Signs 11/17/24 08:19 Height 5 ft 6 in Weight 128 lb BMI 20.7 BP 120/54 L Blood Pressure Location Lt brachial Position Sitting Respiration 16 Pulse 77 Pulse Source Pulse Oximeter Temp 97.8 F Temp Source Oral Pulse Oximetry (%) 97 Oxygen Delivery Method Room Air Intake Visit Reasons: 6m follow up, lipids, fasting labs Intake Note: Pt is here today for her 6mo. f/u lipids Allergies No Known Allergies Allergy (Mild, Verified 11/17/24 08:43) N/A Medication List - Last Reconciled 11/17/24 by Jaycee Kumar MD alendronate 70 mg PO QWEEK 3 months cholecalciferol (vitamin D3) 50 mcg PO DAILY fenofibrate micronized 134 mg PO DAILY Tobacco use date assessed: 11/17/24 Fall risk assessment: No Falls in past year Last assessed Fall Risk: 11/17/24 Dental Screening Dental Screen Date: 05/26/24 Did you have a dental visit in the last 12 months?: No Did you have a dental problem in the last 6 months where you did not have access to dental care?: No Was dental information given to patient?: No HPI 6m follow up, lipids, fasting labs HPI Details 61-year-old lady with history of osteoporosis pain in left femoral neck and osteopenia in left femur, currently on alendronate has been on it now for the last 3 months, with no adverse effects noted. She also has history hypertriglyceridemia currently on fenofibrate, at 134 mg daily. Latest fasting labs showed lipids and vitamin-D level are within normal limits . She has been compliant with her diet, and walks regularly and does weight lifting with light weights. No history of fracture. Up-to-date with all her vaccines. She has family history for colon cancer, sister diagnosed with colon cancer at age 45 and now has a recurrence of the cancer. He had a colonoscopy done by Dr. Roblero in 2019 and is due for repeat colonoscopy this year due to positive family history [facility] Medical History Encounter for monitoring alendronate therapy Family history of colon cancer Osteoporosis Impaired fasting glucose AVM (arteriovenous malformation) brain Cervical cancer screening Hypertriglyceridemia Postmenopause Surgical History Hx of tonsillectomy H/O breast biopsy Family History Sister Colon cancer Emphysema lung Mother COPD (chronic obstructive pulmonary disease) Daughter Bronchial asthma Social History Housing: House Alcohol intake: current Alcohol intake frequency: a few times a week Patient Tobacco Use Status: Never used Tobacco Tobacco use type: Cigarette e-Cigarette/Vaping Use: Never Used Second Hand Smoke Exposure: No service: No Current occupational status: retired Cognitive needs: No Hearing needs: No Vision needs: No Questionnaire PHQ-9 Over the last 2 weeks, how often have you been bothered by any of the following problems? 1. Little interest or pleasure in doing things: not at all 2. Feeling down, depressed, or hopeless: not at all 3. Trouble falling or staying asleep, or sleeping too much: not at all 4. Feeling tired or having little energy: not at all 5. Poor appetite or overeating: not at all 6. Feeling bad about yourself - or that you are a failure or have let yourself or your family down: not at all 7. Trouble concentrating on things, such as reading the newspaper or watching television: not at all 8. Moving or speaking so slowly that other people could have noticed. Or the opposite - being so fidgety or restless that you have been moving around a lot more than usual: not at all 9. Thoughts that you would be better off or of hurting yourself in some way: not at all Total score: 0 Depression Screening Interpretation: Negative Depression Screening Done: Yes 30209 - PHQ-9 Billing: Yes Source: Developed by Drs. Constantin Arcos, Lata Florentino, Cesar Gutiérrez and colleagues, with an educational doug from [employer]. Thrive Questionnaire Date Thrive assessed: 11/17/24 I am a: Patient What is your living situation today?: I have a steady place to live Within the past 12 months, did the food you bought not last and you didn't have the money to get more?: Never true Within the past 12 months, did you worry whether your food would run out before you got money to buy more?: Never true Do you have trouble paying for medicines?: No Do you have trouble getting transportation to medical appointments?: No Do you have trouble paying your heating and electricity bill?: No Do you have trouble taking care of your child, family member or friend?: No Do you have trouble with day-to-day activities such as bathing, preparing meals, shopping, managing finances, etc.?: No Are you currently unemployed and looking for a job?: No Are you interested in more education?: No Please select the resources that you would like help with: None Currently or been in a relationship where the following occur: No concerns reported THRIVE Score: 0 AUDIT C Alcohol Use Questionnaire (AUDIT-C) 1. How often do you have a drink containing alcohol?: 2-3 times a week 2. How many drinks containing alcohol do you have on a typical day when you are drinking?: 1 or 2 3. How often do you have six or more drinks on one occasion?: Never Total Score: 3 ALEXEI-7 AMB Questionnaire ALEXEI-7 Date ALEXEI - 7 assessed: 11/17/24 Feeling nervous, anxious, or on edge: 0 = Not at all Not being able to stop or control worryin = Not at all Worrying too much about different things: 0 = Not at all Trouble relaxin = Several days Being so restless that it is hard to sit still: 0 = Not at all Becoming easily annoyed or irritable: 0 = Not at all Feeling afraid as if something awful might happen: 0 = Not at all Total ALEXEI-7 score (0-4 normal; 5-9 mild; 10-14 moderate; 15-21 severe): 1 Source: Developed by Drs. Constantin Arcos, Lata Florentino, Cesar Gutiérrez and colleagues, with an educational doug from [employer]. ALEXEI-7 Assessment Billing ALEXEI-7 Assessment Tool: ALEXEI-7 Assessment 19958 Review of Systems Const Denies body aches, Denies fatigue, Denies fever(s) and Denies weakness Eyes Details: Overdue for eye screen, history of LASIK surgery Denies change in vision, Denies eye discharge and Denies itchy eyes ENT Reports no additional complaints Card Denies chest pain, Denies lightheadedness, Denies palpitations and Denies dyspnea Resp Denies chest congestion, Denies cough, Denies dyspnea and Denies wheezing GI Denies abdominal pain, Denies change in bowel habits and Denies heartburn Denies urinary frequency, Denies dysuria and Denies urinary urgency Musc Reports no additional complaints Skin/Breast Denies lesions and Denies rash Neuro Denies weakness Psych Reports no additional complaints Endo Denies fatigue, Denies polydipsia, Denies polyuria and Denies palpitations Adriano/Lymph Denies easy bruising Aller/Immun Denies itchy eyes, Denies seasonal rhinorrhea and Denies wheezing Physical exam (Primary Care) Vital Signs: Last Vital Signs Temp 97.8 F 11/17/24 08:19 Pulse 77 11/17/24 08:19 Resp 16 11/17/24 08:19 BP 120/54 L 11/17/24 08:19 Pulse Ox 97 11/17/24 08:19 Oxygen Delivery Method Room Air 11/17/24 08:19 BMI result Body Mass Index 20.7 Tobacco/Smoking Status: Tobacco use Status Tobacco use date assessed 11/17/24 11/17/24 08:26 Patient Tobacco Use Status Never used Tobacco 11/17/24 08:19 Tobacco use type Cigarette 11/17/24 08:19 e-Cigarette/Vaping Use Never Used 11/17/24 08:19 PHQ-9: PHQ-9 Score PHQ-9: Total score 0 11/17/24 08:19 Depression Screening Interpretation: Negative Thrive Assessment: Date of Thrive Assessment Date Thrive assessed 11/17/24 11/17/24 08:26 Currently or been in a relationship where the following occur: No concerns reported Const General: cooperative, comfortable and no acute distress Nutritional Appearance: average body habitus Orientation/consciousness: patient oriented x3 HENMT Head: Yes normocephalic General nose exam: Normal external nose present Face and sinus: Yes face symmetric Mouth: moist mucous membranes Eyes General: appearance normal, both eyes and all related structures Neck Neck: Yes full ROM, Yes no lymphadenopathy and Yes supple Thyroid: Thyroid normal Resp Auscultation: clear to auscultation bilaterally Cardio Other: S1-S2 present regular rate and rhythm GI Palpation (GI): Soft to palpation, nontender, no guarding and no masses Back/Spine/Pelvis Cervical Spine: normal cervical lordosis Thoracic/Lumbar Spine: thoraco-lumbar ROM normal Skin General skin exam: no rashes or lesions noted Neuro General: patient oriented x3, gait normal, moves all extremities, Normal light touch and pain sensation and no focal motor deficits Extrem General: Yes full ROM, Yes no joint enlargement, Yes no pedal edema, Yes no calf tenderness and Yes normal gait Psych Appearance: grossly normal Mental Status: mental status grossly normal Speech and movement: Normal speech and movement present Affect: normal affect Attitude: cooperative Thought process: Normal thought process present Results Reviewed Results Reviewed: Name: Shaniqua Benitez Age/Sex: 69/F : 1955 Unit#: [id number] Attend Dr: Jaycee Kumar MD Re11/12/24 Status: DEP REF Location: [facility] Disch: SPEC : [id number] ERICKSON: 11/12/24 STATUS: COMP REQ : [id number] RECD: 11/12/[address]: Jaycee Kumar MD COMP: 11/12/24 ENTERED: 11/12/[address]: ORDERED: AST, ALT, Lipid Panel, Vitamin D 25-OH Test Result Flag Reference AST (GOT) 25 5-31 U/L ALT (GPT) 24 0-31 U/L Triglyceride 66 <150 mg/dL Desirable Triglyceride: less than 150 mg/dL Borderline High Triglyceride 150-199 mg/dL High Triglyceride: 200-499 mg/dL Very High Triglyceride: greater than or equal to 5OO mg/dL Cholesterol 203 H <200 mg/dL Desirable Cholesterol: less than 200 mg/dL Borderline High Cholesterol: 200-239 mg/dL High Cholesterol: greater than 239 mg/dL LDL Calculated 104 H <100 mg/dL Desirable LDL: less than 100 mg/dL Near Optimal/Above Optimal LDL: 110-129 mg/dL Borderline High LDL: 130-159 mg/dL High LDL: 160-189 mg/dL Very High LDL: greater than or equal to 190 mg/dL HDL 86 >40 mg/dL Desirable HDL: greater than 40 mg/dL Note: This HDL assay may give artificially low results in patients with liver disease. Vit D 25-OH Tot 54.2 >30 ng/mL Health Based Reference Values* < 20 ng/mL Deficient 20-30 ng/mL Insufficient > 30 ng/mL Sufficient Coding Level of Care Code Est Pt Level 4 (82377) Complex EM visit Add On G2211 Diagnoses Family history of colon cancer Z80.0 Age-related osteoporosis without current pathological fracture M81.0 Osteoporosis type: age-related Presence of current pathological fracture: without current pathological fracture Encounter for monitoring alendronate therapy Z51.81; Z79.83 Hypertriglyceridemia E78.1 Impaired fasting glucose R73.01 Additional Codes PHQ-9 - 33069 - PHQ-9 Billing: Yes ([id number]) ALEXEI-7 Assessment Billing - ALEXEI-7 Assessment Tool: ALEXEI-7 Assessment 39910 ([id number]) Assessment & Plan Assessment & Plan (1) Family history of colon cancer: Comment: Sister diagnosed at age 45 Code(s): Z80.0 - Family history of malignant neoplasm of digestive organs Category: Medical Plan: Referred back to Dr. Roblero for her screening colonoscopy (2) Osteoporosis: Code(s): M81.0 - Age-related osteoporosis without current pathological fracture Category: Medical Qualifiers: Osteoporosis type: age-related Presence of current pathological fracture: without current pathological fracture Qualified Code(s): M81.0 - Age-related osteoporosis without current pathological fracture Plan: Has been on alendronate now for at least 3 months, denies any side effects from taking the medication. Compliant with doing regular weight-bearing exercise and has cut vitamin-D 3 supplements as directed, with normal levels noted on recent labs done will repeat another bone density scan together with her screening mammogram later this year. (3) Encounter for monitoring alendronate therapy: Code(s): Z51.81 - Encounter for therapeutic drug level monitoring; Z79.83 - jail (current) use of bisphosphonates Category: Medical Plan: Repeat another bone density scan later this (4) Hypertriglyceridemia: Code(s): E78.1 - Pure hyperglyceridemia Category: Medical Plan: Reviewed recent fasting lipid profile with patient with levels now within normal . Continue fenofibrate 134 mg once a day , in addition to adherence to low-cholesterol diet and regular exercise, at least 30 minutes 3 to 4 times a week. Advised patient to make healthy food choices, eat more fruits, vegetables, whole grains, wild caught fish and low-fat dairy. Limit amount of meat and fried or fatty food products, as well as processed foods and fast foods. Follow-up scheduled with repeat fasting lipid panel in 08/2025 prior to her physical exam visit (5) Impaired fasting glucose: Code(s): R73.01 - Impaired fasting glucose Category: Medical Plan: Your previous fasting blood sugars were elevated above 100 mg/dL. Impaired glucose metabolism increases the risk for developing diabetes mellitus type 2, as well as heart attack and stroke later on. Lifestyle changes that promotes weight loss, healthy eating habits, and regular exercise are important, and can prevent the progression to diabetes. Fasting glucose and hemoglobin A1c added to her next lab order Orders: Orders Lipid Panel 08/08/25 E78.1 - Pure hyperglyceridemia, M81.0 - Age-related osteoporosis without current pathological fracture, R73.01 - Impaired fasting glucose, Z78.0 - Asymptomatic menopausal state Aspartate Amino Transferase 08/08/25 E78.1 - Pure hyperglyceridemia, M81.0 - Age-related osteoporosis without current pathological fracture, R73.01 - Impaired fasting glucose, Z78.0 - Asymptomatic menopausal state Alanine Aminotransferase 08/08/25 E78.1 - Pure hyperglyceridemia, M81.0 - Age-related osteoporosis without current pathological fracture, R73.01 - Impaired fasting glucose, Z78.0 - Asymptomatic menopausal state Vitamin D 25-OH Total 08/08/25 E78.1 - Pure hyperglyceridemia, M81.0 - Age-related osteoporosis without current pathological fracture, R73.01 - Impaired fasting glucose, Z78.0 - Asymptomatic menopausal state Hemoglobin A1c Today E78.1 - Pure hyperglyceridemia, M81.0 - Age-related osteoporosis without current pathological fracture, R73.01 - Impaired fasting glucose, Z78.0 - Asymptomatic menopausal state MM tomosynthesis screening BI Today M81.0 - Age-related osteoporosis without current pathological fracture, Z12.31 - Encounter for screening mammogram for malignant neoplasm of breast, Z51.81 - Encounter for therapeutic drug level monitoring, Z79.83 - jail (current) use of bisphosphonates XR DEXA axial skeleton Today M81.0 - Age-related osteoporosis without current pathological fracture, Z12.31 - Encounter for screening mammogram for malignant neoplasm of breast, Z51.81 - Encounter for therapeutic drug level monitoring, Z79.83 - intermediate designer (current) use of bisphosphonates Basic Metabolic Panel Fasting 08/08/25 E78.1 - Pure hyperglyceridemia, M81.0 - Age-related osteoporosis without current pathological fracture, R73.01 - Impaired fasting glucose, Z78.0 - Asymptomatic menopausal state Referrals Gastroenterology Referral Z80.0 - Family history of malignant neoplasm of digestive organs
== END 2024-11-17 09:52 | disposition home or self-care (01) ==
LOC: HO.HMCC 08:09
PROVIDERS: PCP Internal Medicine; Visit Provider Internal Medicine
DX: Z80.0 Family history of malignant neoplasm of digestive organs (principal); M81.0 Age-related osteoporosis without current pathological fracture; Z51.81 Encounter for therapeutic drug level monitoring; Z79.83 Long term (current) use of bisphosphonates; E78.1 Pure hyperglyceridemia; R73.01 Impaired fasting glucose

== ENCOUNTER → 2024-11-17 08:08 | Outpatient (BNVA) | payer MEDICARE, SELFPAY | PROVIDERS: PCP Internal Medicine; Visit Provider Internal Medicine | DX: M81.0 Age-related osteoporosis without current pathological fracture (principal); E78.1 Pure hyperglyceridemia; R73.01 Impaired fasting glucose; Z80.0 Family history of malignant neoplasm of digestive organs; Z79.83 Long term (current) use of bisphosphonates | CPT/HCPCS: 96127; 99212 ==

== ENCOUNTER 2025-05-03 06:21 | Day surgery (SDC) | payer MEDICARE, SELFPAY ==
--- OUTSIDE RECORDS SUMMARY | 2025-02-25 05:40 | XMS_ITS ---
Author Organization [facility] Address [address] [facility] [address] [facility] [address] [place] [phone] Care Team Providers Care Superintendent Production Name Role Phone Jaycee Kumar MD Primary Care Provider Brent Roblero Jr, Kale Tirado [phone] REASON FOR VISIT colon screening Encounters Encounter Location Date Provider Diagnosis [facility] [address] [facility] [address] [place] [phone] 02/25/2025 Kale Roblero Jr Plan Of Treatment Next Appt Details Provider Name:Kale hackett Jr, 05/03/2025 09:20:00 AM, [address] [place] [address] , [place], [place], [phone], Progress Notes * AILYN KWONG MDOB:1955 (69 yo F)Acc No.[id number]:02/25/2025 Progress Notes Patient: AILYN HOLM Provider: Krystal Roblero MD :1955 A ge:69 Y S ex:Female Date:02/25/2025 Address:[address] [place], [place] [phone] Pcp:Jaycee Kumar MD Subjective: * Chief Complaints: * 1 . Colon screening. * Medical History: Objective: * Vitals: Assessment: Plan: * Treatment: * * The named appointment provid er may or may not be the originator of this progress note, and it is not deemed complete until electronically signed by the appointment provider. Sign off status: Pending * Provider: Krystal Roblero MD Date: 0 02/25/2025 Generated for Raghavendra tolliver/José/Marquise on: 0 03/23/2025 02:55 PM EDT
[2025-04-29 15:58] VITALS: BMI 19.9
--- NOTE | 2025-05-02 12:12 | HO.ANESPROP2 ---
HPI - Anesthesia Eval Consult details Narrative: 69yo F for Colonoscopy PMFSH Active Problems Active Problems: All Active Problems Encounter for monitoring alendronate therapy (Acute) Family history of colon cancer (Acute) Osteoporosis (Acute) Impaired fasting glucose (Acute) Hypertriglyceridemia (Acute) Postmenopause (Acute) Past Medical History Medical History (Updated 04/29/25 @ 15:55 by Jennifer Espinoza, RN) HTN (hypertension) Encounter for monitoring alendronate therapy Family history of colon cancer Osteoporosis Impaired fasting glucose AVM (arteriovenous malformation) brain Cervical cancer screening Hypertriglyceridemia Postmenopause Family History Family History Sister Colon cancer Emphysema lung Mother COPD (chronic obstructive pulmonary disease) Daughter Bronchial asthma Surgical History Surgical History (Updated 04/29/25 @ 15:56 by Jennifer Espinoza, RN) Hx of arthroscopy of left knee Hx of colonoscopy (2019) Hx of tonsillectomy H/O breast biopsy Social History Social History Housing: House Alcohol intake: current Alcohol intake frequency: a few times a week Patient Tobacco Use Status: Never used Tobacco Tobacco use type: Cigarette e-Cigarette/Vaping Use: Never Used Second Hand Smoke Exposure: No service: No Current occupational status: retired Cognitive needs: No Hearing needs: No Vision needs: No Meds Allergies Allergy/AdvReac Type Severity Reaction Status Date / Time No Known Allergies Allergy Mild N/A Verified 11/17/24 08:43 Home Medications ?Medication ?Instructions ?Recorded ?Confirmed ?Last Taken ?Type cholecalciferol (vitamin D3) 50 50 mcg PO DAILY 04/26/22 04/29/25 Unknown History mcg (2,000 unit) capsule lisinopril 2.5 mg tablet 2.5 mg PO DAILY 04/29/25 04/29/25 Unknown History Exam Height,Weight and Vital Signs: Height 5 ft 6 in Weight 55.883 kg Assessment and Plan Assessment Anesthesia Assessment: Chart Reviewed
[2025-05-03 06:36] VITALS: BMI 19.3
[2025-05-03 06:48] VITALS: BP 159/76; PULSE 74; RESP 16; TEMP 36.3; O2SAT 100
[2025-05-03] MEDS: Lactated Ringers 1,000 ML 100 ML IVCONT (06:49)
--- NOTE | 2025-05-03 07:27 | MHC.SHP ---
Pre-Procedural Eval Section A - 24 Hr Update-Section A only Date of Service: 05/03/25 Section B - Complete if H&P > 30 days Chief Complaint: screening Details of Present Illness: see H&P no changes Relevant Family History (Specify if Yes): No Relevant Social History: None Present Medications: see Short Stay Collaborative assessment Medical History: No relevant PMH History of Previous Operations: No relevant previous surgery Allergies: Allergies Allergy/AdvReac Type Severity Reaction Status Date / Time No Known Allergies Allergy Mild N/A Verified 11/17/24 08:43 Review of Systems Sugical H&P ROS: Negative: Constitution, Cardiovascular, Respiratory, Neurological, Psychiatric, Hem-Onc, Allergic/Immunologic, Gastrointestinal, Genitourinary, Musculoskeletal, Integumentary, Endocrine and Eyes/Ears/Nose/Throat Exam Surgical H&P Exam: Normal: HEENT, Normal: Heart, Normal: Lungs, Normal: Extremities, Normal: Abdomen, Normal: Skin and Normal: Neurological Plan Diagnosis/Plan: Unchanged I have reviewed the history and physical and performed a pertinent physical examination on my patient. No changes have occurred unless specified. Time Spent With Patient Time: Total time managing care of this patient today ____ minutes.
--- NOTE | 2025-05-03 07:39 | HO.ANESPROP2 ---
[facility] Active Problems Active Problems: All Active Problems (Updated 04/29/25 @ 15:55 by Jennifer Espinoza RN) Encounter for monitoring alendronate therapy (Acute) Family history of colon cancer (Acute) Osteoporosis (Acute) Impaired fasting glucose (Acute) Hypertriglyceridemia (Acute) Postmenopause (Acute) Past Medical History Medical History HTN (hypertension) Encounter for monitoring alendronate therapy Family history of colon cancer Osteoporosis Impaired fasting glucose AVM (arteriovenous malformation) brain Cervical cancer screening Hypertriglyceridemia Postmenopause Functional capacity: independent ambulation Patient : No Family History Family History Sister Colon cancer Emphysema lung Mother COPD (chronic obstructive pulmonary disease) Daughter Bronchial asthma Family history of problems with anesthesia: No Surgical History Surgical History Hx of arthroscopy of left knee Hx of colonoscopy (2019) Hx of tonsillectomy H/O breast biopsy History of Problems with Anesthesia: Yes Social History Social History Housing: House Alcohol intake: current Alcohol intake frequency: a few times a week Patient Tobacco Use Status: Never used Tobacco Tobacco use type: Cigarette e-Cigarette/Vaping Use: Never Used Second Hand Smoke Exposure: No service: No Current occupational status: retired Cognitive needs: No Hearing needs: No Vision needs: No Meds Allergies Allergy/AdvReac Type Severity Reaction Status Date / Time No Known Allergies Allergy Mild N/A Verified 11/17/24 08:43 Active Medications: Current Medications Lactated Ringer's (Lr) 1,000 mls @ 100 mls/hr IVCONT .Q10H VY Last Admin: 05/03/25 06:49 Dose: 100 mls/hr Home Medications ?Medication ?Instructions ?Recorded ?Confirmed ?Last Taken ?Type cholecalciferol (vitamin D3) 50 50 mcg PO DAILY 04/26/22 04/29/25 Unknown History mcg (2,000 unit) capsule lisinopril 2.5 mg tablet 2.5 mg PO DAILY 04/29/25 05/03/25 05/02/25 08:00 History Exam Height,Weight and Vital Signs: Height 5 ft 6 in Weight 54.2 kg Last Vital Signs Temp 97.4 F 05/03/25 06:48 Pulse 74 05/03/25 06:48 Resp 16 05/03/25 06:48 BP 159/76 H 05/03/25 06:48 Pulse Ox 100 05/03/25 06:48 O2 Del Method Room Air 05/03/25 06:48 Airway Mallampati Class: II TM Dist: >3cm Neck ROM: Full Heart: RRR Lungs: CTA Assessment and Plan Assessment Anesthesia Assessment: Anesthesia Plan Discussed Final Anesthetic Review Family History of Problems with Anesthesia: No History of Problems with Anesthesia: Yes NPO: Yes ASA Class: II Final Preanesthetic Review: Meds/Liz Chart Reviewed and Consent Obtained/Reviewed Patient Risk: Intermediate Procedure Risk: Low Anesthetic Plan Anesthetic Plan: MAC:
[2025-05-03 07:59] VITALS: BP 95/41; PULSE 63; RESP 16; TEMP 36.1; O2SAT 97
[2025-05-03 08:14] VITALS: BP 115/64; PULSE 56; RESP 16; O2SAT 98
[2025-05-03 08:30] VITALS: BP 126/69; PULSE 55; RESP 16; TEMP 36.1; O2SAT 100
--- NOTE | 2025-05-03 09:24 | OP_ITS ---
DATE OF SERVICE: 05/03/2025 SURGEON: Kale Roblero MD INDICATIONS: Colon cancer screening and family history of colon cancer. PREOPERATIVE DIAGNOSIS: POSTOPERATIVE DIAGNOSIS: PROCEDURE PERFORMED: Colonoscopy to the terminal ileum. ESTIMATED BLOOD LOSS: COMPLICATIONS: ANESTHESIA: Monitored anesthesia care. ASSISTANTS: SPECIMENS: DESCRIPTION OF PROCEDURE: A history and physical performed. The risks and benefits of the procedure were explained to the patient. Informed consent was obtained. The patient was placed in the left lateral decubitus position. A digital rectal exam was performed and was found to be normal. The Olympus pediatric video colonoscope was introduced into the rectum and advanced to the cecum. The cecum was identified by transillumination, palpation, and identification of ileocecal valve. Examination was performed. The scope was removed. She tolerated the procedure well and was returned to recovery area in stable condition. FINDINGS: The terminal ileum was examined and appeared normal. The visualized colonic mucosa was normal. The quality of the prep was good. No polyps were identified. Retroflexed examination showed small to moderate-sized internal hemorrhoids. IMPRESSION: Normal colonoscopy. RECOMMENDATION: 1. Followup as needed. 2. Repeat colonoscopy is recommended in 5 years because of family history. MD TAL Talamantes/PINKY / [id number]
--- NOTE | 2025-05-03 11:22 | HO.POSTANES ---
Post Anesthesia Evaluation Post Anesthesia Evaluation Date of Service: 05/03/25 Vital Signs: Vital Signs Temp Pulse Resp BP Pulse Ox O2 Del Method 05/03/25 08:30 97 F 55 16 126/69 100 Room Air 05/03/25 08:14 56 16 115/64 98 Room Air 05/03/25 07:59 97 F 63 16 95/41 L 97 Room Air 05/03/25 06:48 97.4 F 74 16 159/76 H 100 Room Air Anesthesia: Monitored Mental Status: Awake Pain Control: Satisfactory Nausea/Vomiting: None Hydration: Adequate Anesthesia-Related Issues: No Anes. Related Issues
== END 2025-05-03 09:09 | disposition home or self-care (01) ==
PROVIDERS: PCP Internal Medicine; Visit Provider Internal Medicine Gastroenterology
PROC: 0DJD8ZZ Inspection of Lower Intestinal Tract, Via Natural or Artificial Opening Endoscopic (ICD-10-PCS; CPT 45378; principal; 2025-05-03 07:30)
DX: Z12.11 Encounter for screening for malignant neoplasm of colon (principal); Z80.0 Family history of malignant neoplasm of digestive organs; K64.8 Other hemorrhoids; I10 Essential (primary) hypertension; E78.1 Pure hyperglyceridemia; M81.0 Age-related osteoporosis without current pathological fracture; R73.01 Impaired fasting glucose; Q28.2 Arteriovenous malformation of cerebral vessels; Z79.899 Other long term (current) drug therapy; Z98.890 Other specified postprocedural states
CPT/HCPCS: G0105; J2003; J2704

== ENCOUNTER 2025-07-25 08:13 | Outpatient (REF) | payer MEDICARE, SELFPAY ==
--- NOTE | ~2025-07-25 | MM_ITS ---
EXAMINATION: MM SCREENING DIGITAL BREAST TOMOSYNTHESIS, BILATERAL CLINICAL INFORMATION: Screening. Asymptomatic. COMPARISON: Comparison made to multiple prior, most recent July 10, 2024, and most remote February 12, 2019. TECHNIQUE: Digital breast tomosynthesis is performed in mediolateral oblique and craniocaudal views along with computer-aided detection (CAD). Synthesized 2D images are generated from the tomosynthesis. FINDINGS: BREAST COMPOSITION: The breasts are heterogeneously dense, which may obscure small masses. BILATERAL BREASTS: No significant masses, suspicious calcifications or other abnormalities are seen in either breast. MM/MM tomosynthesis screening BI IMPRESSION: BILATERAL BREASTS: Negative, no mammographic evidence of malignancy. Normal interval follow-up is recommended in 12 months. ASSESSMENT: BI-RADS: Category 1: Negative RECOMMENDATION: Routine annual mammography screening. FOLLOW-UP: 1 year F/U This examination should not preclude the clinical evaluation of a suspicious palpable abnormality. This patient's information was entered into a reminder system with a target due date for their next mammogram. Electronically signed by: Rose Gomez MD 07/25/2025 08:06 PM [facility]
--- NOTE | ~2025-07-25 | MM_ITS ---
STUDY: DUAL ENERGY X-RAY ABSORPTIOMETRY / DXA REASON FOR EXAM: Female, 70 years old Z12.31 - Encounter for screening mammogram for malignant neoplasm of breast TECHNIQUE: Bone Mineral Density (BMD) measurements of the lumbar spine and left hip were obtained using [employer] COMPARISON: July 09, 2023 FINDINGS: L1-L2 BMD: 1.236 g/cm2 L1-L2 T score: 0.6. This corresponds to Normal bone density. This represents a 9.0* % increase in bone density compared with prior exam from July 09, 2023. Left femoral neck BMD: 0.779 g/cm2 Left femoral neck T score: -1.9. This corresponds to osteopenia. Left total hip BMD: 0.806 g/cm2 Left total hip T score: -1.6. This corresponds to osteopenia. This represents a 15.0* % increase in bone density compared with prior exam from July 09, 2023. * - Indicates a statistically significant change. MM/XR DEXA axial skeleton IMPRESSION: Osteopenia Reference Information: The T-score is the number of standard deviations above or below the standard which is normal for young adults at their peak bone mineral density. The World Health Organization (WHO) interprets the T-scores as follows: At or above -1 SD Normal bone density Between -1 and -2.5 SD Osteopenia At or below -2.5 SD Osteoporosis Electronically signed by: Rose Gomez MD 07/26/2025 08:59 AM [facility]
== END 2025-07-25 08:14 | disposition home or self-care (01) ==
LOC: HO.MAMMO 08:13
PROVIDERS: PCP Internal Medicine; Visit Provider Internal Medicine
DX: Z12.31 Encounter for screening mammogram for malignant neoplasm of breast (principal); M81.0 Age-related osteoporosis without current pathological fracture; M85.852 Other specified disorders of bone density and structure, left thigh; Z51.81 Encounter for therapeutic drug level monitoring; Z79.83 Long term (current) use of bisphosphonates
CPT/HCPCS: 77063; 77067; 77080

== ENCOUNTER → 2025-07-25 08:17 | Outpatient (BNV) | payer MEDICARE, SELFPAY | PROVIDERS: PCP Internal Medicine; Visit Provider Radiology Body Imaging | DX: E28.39 Other primary ovarian failure (principal) | CPT/HCPCS: 77063; 77067; 77080 ==

== ENCOUNTER 2025-08-05 09:01 | Outpatient (REF) | payer MEDICARE, SELFPAY ==
--- OUTSIDE RECORDS SUMMARY | 2025-02-25 04:40 | XMS_ITS ---
Author Organization [facility] Address [address] [place] [phone] Care Team Providers Care Airport Electrician Name Role Phone José PHILLIPS, Jaycee Primary Care Provider Kale Ernandez Jr REASON FOR VISIT colon screening Encounters Encounter Location Date Provider Diagnosis [facility] [address] [place] [phone] 02/25/2025 Kale Roblero Jr Plan Of Treatment No Information Progress Notes * AILYN KWONG MDOB:1955 (70 yo F)Acc No.[id number]:02/25/2025 Progress Notes Patient: Sam RAMIREZ AILYN Carr Provider: Krystal Roblero MD :1955 A ge:69 Y S ex:Female Date:02/25/2025 Address:[address] [place], [place] [id number] Pcp:Jaycee Kumar MD Subjective: * Chief Complaints: * C olon screening * The named appointment provid er may or may not be the originator of this progress note, and it is not deemed complete until electronically signed by the appointment provider. Sign off status: Pending * Provider: Krystal Roblero MD Date: 0 02/25/2025 Generated for Printi ng/Faxing/eTransmitting on: 1 10/05/2024 09:04 AM EST
--- OUTSIDE RECORDS SUMMARY | 2025-05-03 04:20 | XMS_ITS ---
Author Organization [facility] Address [address] [place] [phone] Care Team Providers Care Chemical Librarian Name Role Phone José PHILLIPS, Jaycee Primary Care Provider Kale Ernandez Jr [phone] REASON FOR VISIT screening Encounters Encounter Location Date Provider Diagnosis [facility] [address] [place], [place] [phone] 05/03/2025 Kale Roblero Jr Plan Of Treatment No Information Progress Notes * AILYN KWONG MDOB:1955 (70 yo F)Acc No.[id number]:05/03/2025 COLON WITH MAC Patient: AILYN HOLM Provider: Krystal Roblero MD :1955 A ge:69 Y S ex:Female Date:05/03/2025 Address:[address] [place], [place] [phone] Pcp:Jaycee Kumar MD Subjective: * Chief Complaints: * S creening * The named appointment provid er may or may not be the originator of this progress note, and it is not deemed complete until electronically signed by the appointment provider. Sign off status: Pending * Provider: Krystal Roblero MD Date: 0 05/03/2025 Generated for Raghavendra tolliver/José/eTransmitting on: 1 10/05/2024 09:04 AM EST
--- OUTSIDE RECORDS SUMMARY | 2025-08-05 09:04 | XMS_ITS ---
Author Organization Unknown ENCOUNTERS Encounter Performer Location Date Diagnosis Diagnosis Status Outpatient [address] [id number] TANIKA *Note: Encounters from your own facility or health system may be excluded. Allergies, Adverse Reactions, Alerts Allergen Type Severity Identification Date Medications Name Date Quantity Days Supplied GPI Number
--- OUTSIDE RECORDS SUMMARY | 2025-08-05 09:04 | XMS_ITS | Patient Health Record ---
Author Organization [facility] Address [address] [place] [id number] Care Team Providers Care Head Shipper Name Role Phone Jaycee Kumar MD Primary Care Provider Kale Ernandez Jr Unavailable Allergies No Known Allergies Reason For Referral No Information Medications Medication SIG (Take, Route, Frequency, Duration) Notes Start Date End Date Status Vitamin D 1000 UNIT Tablet 1 tablet Oral ly Once a day; Duration: 30 day(s) Unknown Lisinopril 2.5 MG Tablet TAKE 1 TABLET B Y MOUTH EVERY DAY Oral; Duration: 30 Unknown Fenofibrate Micronized 134 MG Capsule TAKE 1 CAPSULE BY MOUTH DAILY Oral; Duration: 90 Days Unknown Alendronate Sodium 70 MG Tablet TAKE 1 TABLET BY MOUTH WEEKLY Oral; Duration: 84 Days Unknown Immunizations Vaccine Route Administration Date Status Comme nts Influenza Unknown 06/17/2018 Administered Influenza Unknown 05/25/2024 Administered Social History Tobacco Use: Social History Observation Description Date Details (start date - stop date) Never Smoker NA - NA Social History Drugs/Alcohol: Social Info Question Answer Notes Alcohol Screen Did you have a drink containing alcohol in the past year? Yes How often did you have a drink containing alcohol in the past year? 4 or more times a week (4 points) How many drinks did you have on a typical day when you were drinking in the past year? 1 or 2 drinks (0 point) How often did you have 6 or more drinks on one occasion in the past year? 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 [employer] Problems Problem Type SNOMED Code ICD Code Onset Dates Problem Status W/U Status Risk Notes Problem Colon cancer screening (268784574) Colon cancer screening (Z12.11) Active confirmed Problem Erosive esophagitis (68826222) Erosive esophagitis (K22.10) Active confirmed Problem Pre-procedure evaluation check (612302207) Preoperative examination (Z01.818) Active confirmed Vital Signs Temperature 97.3 degrees Fahrenheit 03/23/2025 Blood pressure diastolic 01 mm Hg 03/23/2025 Height 66 in 03/23/2025 Blood pressure systolic 001 mm Hg 03/23/2025 Weight 123.2 lbs 03/23/2025 BMI 19.88 kg/m2 03/23/2025 Encounters Encounter Location Date Provider [place] [facility] [place] [address] [place] [id number] 05/03/2025 Kale Roblero Jr [facility] [address] [place] [phone] 03/23/2025 Kale Roblero Jr Colon cancer screening Z12.11 and Preoperative examination Z01.818 [facility] [address] [place] [phone] 03/23/2025 Kale Roblero Jr Assessments Encounter Date Diagnosis (ICD Code) Assessment Notes Treatment Notes Treatment Clinical Notes Section Notes 03/23/2025 Colon cancer screening (ICD-10 - Z12.11) We discussed risks and benefits of the procedure today. She understands these and agrees to proceed. This will be scheduled at her convenience. 03/23/2025 Preoperative examination (ICD-10 - Z01.818) We discussed risks and benefits of the procedure today. She understands these and agrees to proceed. This will be scheduled at her convenience. Plan Of Treatment Future Test Test Name Order Date COLONOSCOPY 02/26/2019 COLONOSCOPY 03/23/2025 Insurance Providers Payer Name Payer Address Payer Phone Subscriber Number Group Number Insured Name Patient Relationship to Insured Coverage Start Date Coverage End Date [facility] Medicare Advantage Plan [address] [address] [place] [address] [phone] [id number] AILYN KWONG Self - patient is the insured Medical (General) History Medical History History ICD Code hypertension Denies [place],DM,CVA,Lung disease,renal dise ase Surgical History Surgery Date(Month/Year) left knee arthroscopy dural arterio venous fistula
[2025-08-05 13:04] LABS: Alanine Aminotransferase 16 U/L (0-31); Anion Gap 14 (12-20); Aspartate Amino Transferase 21 U/L (5-31); Blood Urea Nitrogen 19 mg/dL (9-16); Calcium 9.9 mg/dL (8.4-10.2); Carbon Dioxide 27 mmol/L (22-29); Chloride 106 mmol/L (96-108); Cholesterol 222 mg/dL (<200); Estimated Glomerular Filt Rate > 60; HDL Cholesterol 94 mg/dL (>40); Potassium 4.1 mmol/L (3.3-5.1); Sodium 143 mmol/L (135-145); Triglycerides 62 mg/dL (<150)
== END 2025-08-05 09:02 | disposition home or self-care (01) ==
LOC: HO.HMGCLDS 09:01
PROVIDERS: PCP Internal Medicine; Visit Provider Internal Medicine
DX: M81.0 Age-related osteoporosis without current pathological fracture (principal); R73.01 Impaired fasting glucose; E78.1 Pure hyperglyceridemia; Z78.0 Asymptomatic menopausal state
CPT/HCPCS: 36415; 80048; 80061; 82306; 83036; 84450; 84460

== ENCOUNTER 2025-08-15 10:00 | Outpatient (AMB) | payer MEDICARE, SELFPAY ==
[2025-08-15 10:26] VITALS: BP 140/70; PULSE 55; RESP 16; TEMP 36.7; O2SAT 99; BMI 20.8
--- NOTE | 2025-08-15 10:26 | A.OFFPC_ITS ---
Vital Signs 08/15/25 10:26 Height 5 ft 6 in Weight 129 lb BMI 20.8 BP 140/70 H Blood Pressure Location Rt brachial Position Sitting Respiration 16 Pulse 55 Pulse Source Pulse Oximeter Temp 98.0 F Temp Source Oral Pulse Oximetry (%) 99 Oxygen Delivery Method Room Air Intake Visit Reasons: Annual PE- r/s'd per Dr. 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: No Allergies No Known Allergies Allergy (Mild, Verified 08/15/25 10:57) N/A Medication List - Last Reconciled 08/15/25 by Jaycee Kumar MD alendronate 70 mg PO QWEEK 3 months cholecalciferol (vitamin D3) 50 mcg PO DAILY fenofibrate micronized 134 mg PO DAILY Tobacco use date assessed: 08/15/25 Fall risk assessment: No Falls in past year Dental Screening Dental Screen Date: 08/15/25 Did you have a dental visit in the last 12 months?: No Did you have a dental problem in the last 6 months where you did not have access to dental care?: No Was dental information given to patient?: Patient has dentist HPI Annual PE- r/s'd per Dr. Kumar - see comments HPI Details : last mammogram 07/25/25, bone density scan 07/25/25, colonoscopy 05/03/25 PFSH Medical History (Updated 08/15/25 @ 11:18 by Jaycee Kumar MD) Mixed dyslipidemia HTN (hypertension) Encounter for monitoring alendronate therapy Family history of colon cancer Osteoporosis Impaired fasting glucose AVM (arteriovenous malformation) brain Cervical cancer screening Hypertriglyceridemia Postmenopause Surgical History Hx of arthroscopy of left knee Hx of colonoscopy (2019) Hx of tonsillectomy H/O breast biopsy Family History Sister Colon cancer Emphysema lung Mother COPD (chronic obstructive pulmonary disease) Daughter Bronchial asthma Social History Housing: House Alcohol intake: current Alcohol intake frequency: a few times a week Patient Tobacco Use Status: Never used Tobacco Tobacco use type: Cigarette e-Cigarette/Vaping Use: Never Used Second Hand Smoke Exposure: No service: No Current occupational status: retired Cognitive needs: No Hearing needs: No Vision needs: No Questionnaire PHQ-9 Over the last 2 weeks, how often have you been bothered by any of the following problems? 1. Little interest or pleasure in doing things: not at all 2. Feeling down, depressed, or hopeless: not at all 3. Trouble falling or staying asleep, or sleeping too much: not at all 4. Feeling tired or having little energy: not at all 5. Poor appetite or overeating: not at all 6. Feeling bad about yourself - or that you are a failure or have let yourself or your family down: not at all 7. Trouble concentrating on things, such as reading the newspaper or watching television: not at all 8. Moving or speaking so slowly that other people could have noticed. Or the opposite - being so fidgety or restless that you have been moving around a lot more than usual: not at all 9. Thoughts that you would be better off or of hurting yourself in some way: not at all Total score: 0 Depression Screening Interpretation: Negative Depression Screening Done: Yes Source: Developed by Drs. Constantin Arcos, Lata Florentino, Cesar Gutiérrez and colleagues, with an educational doug from [employer]. Thrive Questionnaire Date Thrive assessed: 11/12/24 I am a: Patient What is your living situation today?: I have a steady place to live Within the past 12 months, did the food you bought not last and you didn't have the money to get more?: Never true Within the past 12 months, did you worry whether your food would run out before you got money to buy more?: Never true Do you have trouble paying for medicines?: No Do you have trouble getting transportation to medical appointments?: No Do you have trouble paying your heating and electricity bill?: No Do you have trouble taking care of your child, family member or friend?: No Do you have trouble with day-to-day activities such as bathing, preparing meals, shopping, managing finances, etc.?: No Are you currently unemployed and looking for a job?: No Are you interested in more education?: No Please select the resources that you would like help with: None Currently or been in a relationship where the following occur: No concerns reported THRIVE Score: 0 AUDIT C Alcohol Use Questionnaire (AUDIT-C) 1. How often do you have a drink containing alcohol?: 2-3 times a week 2. How many drinks containing alcohol do you have on a typical day when you are drinking?: 1 or 2 3. How often do you have six or more drinks on one occasion?: Never Total Score: 3 ALEXEI-7 AMB Questionnaire ALEXEI-7 Date ALEXEI - 7 assessed: 11/17/24 Feeling nervous, anxious, or on edge: 0 = Not at all Not being able to stop or control worryin = Not at all Worrying too much about different things: 0 = Not at all Trouble relaxin = Several days Being so restless that it is hard to sit still: 0 = Not at all Becoming easily annoyed or irritable: 0 = Not at all Feeling afraid as if something awful might happen: 0 = Not at all Total ALEXEI-7 score (0-4 normal; 5-9 mild; 10-14 moderate; 15-21 severe): 1 Source: Developed by Drs. Constantin Arcos, Lata Florentino, Cesar Gutiérrez and colleagues, with an educational doug from [employer]. Physical exam (Primary Care) Vital Signs: Last Vital Signs Temp 98.0 F 08/15/25 10:26 Pulse 55 08/15/25 10:26 Resp 16 08/15/25 10:26 BP 140/70 H 08/15/25 10:26 Pulse Ox 99 08/15/25 10:26 Oxygen Delivery Method Room Air 08/15/25 10:26 BMI result Body Mass Index 20.8 Tobacco/Smoking Status: Tobacco use Status Tobacco use date assessed 08/15/25 08/15/25 10:28 Patient Tobacco Use Status Never used Tobacco 08/15/25 10:28 Tobacco use type Cigarette 08/15/25 10:28 e-Cigarette/Vaping Use Never Used 08/15/25 10:28 PHQ-9: PHQ-9 Score PHQ-9: Total score 0 08/15/25 10:58 Depression Screening Interpretation: Negative Thrive Assessment: Date of Thrive Assessment Date Thrive assessed 11/12/24 08/15/25 10:28 Currently or been in a relationship where the following occur: No concerns reported Immunizations pneumoc 20-ac conj-dip cr(PF) 0.5 mL IM syringe Performing Provider: Jaycee Kumar MD [place] [facility] Administered by: Zelda Ramirez CMA on 08/15/25 11:17 Dose Route Admin Location Dispensed Lot Number Expiration Date NDC Manager Mission 0.5 mL IM Left Deltoid 0.5 mL [id number] 06/07/26 0721-1619-95 [employer] Total Dispensed Waste 0.5 mL 0 % VIS Given Date VIS Provided VIS Publication Date 08/15/25 Single Vaccine 25 Eligibility Eligibility Date Funding Source Not [facility] Eligible 08/15/25 Private Coding Level of Care Code Est Pt Prev Care >65y(00618) Diagnoses Impaired fasting glucose R73.01 Encounter for monitoring alendronate therapy Z51.81; Z79.83 Mixed dyslipidemia E78.2 HTN (hypertension) I10 Annual visit for general adult medical examination with abnormal findings Z00.01 Assessment & Plan Assessment & Plan (1) Impaired fasting glucose: Code(s): R73.01 - Impaired fasting glucose Category: Medical (2) Encounter for monitoring alendronate therapy: Code(s): Z51.81 - Encounter for therapeutic drug level monitoring; Z79.83 - care home (current) use of bisphosphonates Category: Medical (3) Mixed dyslipidemia: Code(s): E78.2 - Mixed hyperlipidemia Category: Medical (4) HTN (hypertension): Code(s): I10 - Essential (primary) hypertension Category: Medical (5) Annual visit for general adult medical examination with abnormal findings: Code(s): Z00.01 - Encounter for general adult medical examination with abnormal findings Orders: Orders Pneumococcal 20 Immunization Today Z23 - Encounter for immunization
== END 2025-08-15 11:48 | disposition home or self-care (01) ==
LOC: HO.HMCC 10:01
PROVIDERS: PCP Internal Medicine; Visit Provider Internal Medicine
DX: Z23 Encounter for immunization (principal)

== ENCOUNTER → 2025-08-15 10:00 | Outpatient (BNVA) | payer MEDICARE, SELFPAY | PROVIDERS: PCP Internal Medicine; Visit Provider Internal Medicine | DX: Z00.01 Encounter for general adult medical examination with abnormal findings (principal); R03.0 Elevated blood-pressure reading, without diagnosis of hypertension; M85.89 Other specified disorders of bone density and structure, multiple sites; E78.2 Mixed hyperlipidemia; R73.01 Impaired fasting glucose; Z23 Encounter for immunization; Z13.31 Encounter for screening for depression | CPT/HCPCS: 90471; 90677; 96127; 99397 ==